=== PATIENT | female | born 2000 | race Caucasian/White ===

== ENCOUNTER 2020-12-28 19:24 | Emergency (ER) | payer OTHER, SELFPAY ==
[2020-12-28 20:08] VITALS: BP 93/54; PULSE 80; RESP 16; TEMP 37.2; O2SAT 99; BMI 23.3
--- NOTE | 2020-12-28 20:10 | ED.SKABFB ---
HPI - Skin/Abscess/Foreign Bdy General Chief complaint: Skin/Abscess/Foreign Body Stated complaint: possible infected cyst Time Seen by Provider: 12/28/20 20:09 Source: patient Mode of arrival: ambulatory Limitations: no limitations History of Present Illness HPI narrative: patient is a 20-year-old female no significant past medical history presents with a cyst on her low back, upper buttocks. She states it is extremely painful and has been there for 4 days. She states she has not taken any medication to try to make it better used warm moist cloths. She states this is never happened before. She denies fevers or rash. Related Data Allergies Allergy/AdvReac Type Severity Reaction Status Date / Time No Known Allergies Allergy Unverified 03/15/20 17:03 [No Known Allergies*] Review of Systems Review of Systems: Yes all other systems are reviewed and are negative PMFSH Past Medical History Medical History No known health problems Social History Social History Advance Directives: No Advance Directives Information Provided: Yes Patient : No Physical Exam Vital Signs: Vital Signs: Last Vital Signs Temp 99.0 F 12/28/20 20:08 Pulse 80 12/28/20 20:08 Resp 16 12/28/20 20:08 BP 93/54 L 12/28/20 20:08 Pulse Ox 99 12/28/20 20:08 Body Mass Index 23.3 Const: General: cooperative, healthy appearing, comfortable and no acute distress Nutritional Appearance: average body habitus Orientation/consciousness: patient oriented x3 HENMT: Head: Yes normal to inspection Eyes: General: appearance normal, both eyes and all related structures Skin: Other: Upper buttocks, 4 cm x 2 cm fluctuant erythematous abscess. No signs of infection noted Neuro: General: patient oriented x3 Course Course Course Narrative: abscess on the upper buttocks, will do I and D. Patient in significant amount of pain status post I&D, will give 5 mg Oxy for pain control. Patient has her boyfriend driving her home tonight. Procedures Abscess I/D Site: other (upper buttock) Side (if applicable): right Local Anesthetic: lidocaine 2% Amount of anesthesia used (mL): 5 Technique: incised with blade Amount of fluid expressed (mL): 10 Sent for culture/gram staining?: No Irrigation: Yes Packing used?: iodoform Complications: pain
[2020-12-28] MEDS: Lidocaine HCl 2 % MPF 5 ML VIAL INFILTRATI (21:26)
[2020-12-28] MEDS: oxyCODONE HCl Immed Release 5 MG TABLET PO (21:44)
== END 2020-12-28 21:52 | disposition home or self-care (01) ==
PROVIDERS: Emergency Provider Internal Medicine
DX: L02.31 Cutaneous abscess of buttock (principal)
CPT/HCPCS: 10060; 99283; 99284

== ENCOUNTER 2021-07-07 12:01 | Emergency (ER) | payer MEDICAID, SELFPAY ==
[2021-07-07 12:33] VITALS: BP 107/64; PULSE 110; RESP 18; TEMP 36.9; O2SAT 99; BMI 24.0
[2021-07-07 12:59] LABS: COVID-19 Test Positive (Negative); IDNOW Serial# 9DD0AD1C
--- NOTE | 2021-07-07 14:10 | PC.NURSE ---
heart tones heard with doppler at 145
--- NOTE | 2021-07-07 14:21 | ED.SOB ---
HPI - SOB/Dyspnea General Chief Complaint: Dyspnea Stated Complaint: Body aches/headache/nausea Time Seen by Provider: 07/07/21 13:02 Source: patient Mode of arrival: ambulatory Limitations: no limitations History of Present Illness HPI Narrative: With 28 weeks not vaccinated against COVID been feeling body aches malaise slight shortness of breath since morning today slight cough saturating 99% at room air afebrile on arrival no vaginal bleeding or discharge no abdominal pain fetus is moving normally Related Data Previous Rx's Medication Instructions Recorded dexamethasone 6 mg tablet 6 mg PO DAILY #7 tab 07/07/21 (Decadron) Allergies Allergy/AdvReac Type Severity Reaction Status Date / Time No Known Allergies Allergy Unverified 03/15/20 17:03 [No Known Allergies*] Review of Systems Review of Systems: Yes all other systems are reviewed and are negative [facility] Past Medical History Medical History No known health problems Social History Social History Advance Directives: No Advance Directives Information Provided: Yes Patient : Yes Physical Exam Vital Signs: Vital Signs: Last Vital Signs Temp 98.9 F 07/07/21 14:49 Pulse 80 07/07/21 14:49 Resp 18 07/07/21 14:49 BP 107/64 07/07/21 12:33 Pulse Ox 99 07/07/21 14:49 BMI result Body Mass Index 24.0 Appearance: Alert. Oriented X3. No acute distress. ENT: Pharynx normal. Oral Mucosa moist Neck: Normal inspection. Neck supple. CVS: Normal heart rate and rhythm. Pulses normal. Respiratory: No respiratory distress. Equal air entry bilateral, no wheezing/rales/rhonchi Abdomen: Gravid uterus no tenderness Bowel sounds are present, Skin: Skin warm and dry. Normal skin color. Normal skin turgor. Extremities: No lower extremity edema. No calf tenderness Neuro: Oriented X 3. MDM - SOB/Dyspnea Lab Data Attestation: I reviewed the patient's lab results. Labs: Lab Results 07/07/21 Range/Units 12:40 COVID-19 ([facility]) Positive A (Negative) COVID-19 Clin Com See Note Discharge Plan Discharge Clinical Impression: COVID-19 Patient Disposition: Home, Self-Care Instructions: COVID-19 (Coronavirus Disease 2019) (ED) Additional Instructions: Rest at home Drink plenty of fluid Decadron as advised report to ed if increase shortness of breath or not feel good tylenol for fever Prescriptions: New dexamethasone [Decadron] 6 mg tablet 6 mg PO DAILY Qty: 7 RF: 0 Interventions: ED Discharge Assessment Last Done: 07/07/21 14:49 Discharge Date/Time: 07/07/21 14:52
[2021-07-07] MEDS: Acetaminophen 325 MG TABLET 650 MG PO (14:37)
[2021-07-07] MEDS: dexAMETHasone 6 MG TABLET PO (14:37)
[2021-07-07 14:49] VITALS: PULSE 80; RESP 18; TEMP 37.2; O2SAT 99
== END 2021-07-07 14:52 | disposition home or self-care (01) ==
PROVIDERS: Emergency Provider Internal Medicine
DX: U07.1 COVID-19 (principal); R06.02 Shortness of breath; M79.10 Myalgia, unspecified site; Z79.899 Other long term (current) drug therapy
CPT/HCPCS: 87635; 99283; 99284; J8540

== ENCOUNTER 2024-11-09 20:38 | Emergency (ER) | payer MEDICAID, SELFPAY ==
--- NOTE | 2024-11-09 20:40 | ED.UPPEXIN ---
HPI - Extremity Injury (Upper) General Chief Complaint: Wound/Laceration Stated Complaint: left hand pointer finger wound Time Seen by Provider: 11/09/24 21:31 History of Present Illness HPI narrative: 24-year-old female presents with left 2nd finger laceration. Patient states she caught herself on a knife at home while opening her child's toy. Tetanus up-to-date Related Data Previous Rx's ?Medication ?Instructions ?Recorded dexamethasone 6 mg tablet 6 mg PO DAILY #7 tabs 07/07/21 (Decadron) Allergies Allergy/AdvReac Type Severity Reaction Status Date / Time No Known Allergies Allergy Verified 11/09/24 20:46 [No Known Allergies*] Review of Systems Review of Systems: Yes all other systems are reviewed and are negative Constitutional: Constitutional: Denies fever(s) Musculoskeletal: Musculoskeletal: Denies arthralgias and Denies joint swelling Integumentary/Breasts: Skin/Breast: Reports wounds PMFSH Past Medical History Attestation statement: The following information was validated with the patient. Medical History No known health problems Social History Social History Smoked in Last 30 Days: No Use of substances other than those prescribed or required for medical reasons: No Advance Directives: No Advance Directives Information Provided: Yes Patient : No Physical Exam Vital Signs: Vital Signs: Last Vital Signs Temp 97.7 F 11/09/24 22:46 Pulse 80 11/09/24 22:46 Resp 16 11/09/24 22:46 BP 110/61 11/09/24 22:46 Pulse Ox 98 11/09/24 22:46 O2 Del Method Room Air 11/09/24 22:46 BMI result Body Mass Index 26.2 Const: Other: Alert well-appearing Orientation/consciousness: patient oriented x3 Resp: Effort & Inspection: normal respiratory effort Cardio: Other: Normal peripheral perfusion Skin: Other: Warm dry no rash Neuro: General: patient oriented x3, gait normal, no focal motor deficits and CN's II-XI intact bilaterally Extrem: Other: 1.5 cm linear superficial laceration noted over left pointer finger along the palmar aspect of the pad, no longer bleeding Psych: Other: Cooperative Course Course Course Narrative: This is a rapid medical exam performed by Nuno Conner NP: Additional HPI, ROS, PE not included below will be deferred to primary provider. 24 yo female with no significant PMHx, right hand dominant presents to ED due to L 2nd digit. She states she was opening a toy for her toddler with a knife when it slipped and cut the L 2nd digit. She states her last tetanus shot was 2 years ago. PE: 1cm laceration of the L 2nd digit, proximal MCP. No active bleeding in triage. Full ROM, no tingling or numbness Plan: lac repair Medical Decision Making Medical Decision Making MDM Narrative: 24-year-old female presents with left 2nd finger laceration. Patient states she caught herself on a knife at home while opening her child's toy. Tetanus up-to-date No chronic issues History: Per patient I have considered the following differential diagnoses: Laceration, excoriation, contusion, abrasion Plan: Lack of require simple repair no indication for labs or imaging Procedures Laceration Laceration 1: Site: hand Side (If applicable): left Size (cm): 1.5 Description: linear Depth: simple, single layer Local Anesthetic: lidocaine 1% and with epi Amount of anesthesia used (mL): 2 Pre-repair: irrigated extensively Skin layer closed with: nylon Size (cm): 5-0 Number of sutures: 4 Technique: simple, interrupted Discharge Plan Discharge Clinical Impression: Laceration of finger of left hand Patient Disposition: Home, Self-Care Instructions: Laceration (ED) Additional Instructions: For stitches were used to repair the laceration. The stitches can be removed in 7 days. Watch for signs of infection which would include redness, swelling, pus draining from the site or fever. Prescriptions: No Action dexamethasone [Decadron] 6 mg tablet 6 mg PO DAILY Qty: 7 0RF Interventions: ED Discharge Assessment Last Done: 11/09/24 22:46 Discharge Date/Time: 11/09/24 22:46 Print Language: Panamanian
[2024-11-09 20:41] VITALS: BP 118/83; PULSE 79; RESP 16; TEMP 36.7; O2SAT 100; BMI 26.2
[2024-11-09 22:43] VITALS: BP 110/61; PULSE 80; RESP 16; TEMP 36.5; O2SAT 98
[2024-11-09 22:46] VITALS: BP 110/61; PULSE 80; RESP 16; TEMP 36.5; O2SAT 98
== END 2024-11-09 22:46 | disposition home or self-care (01) ==
PROVIDERS: Emergency Provider Emergency Medicine; PCP Dentist General Practice
DX: S61.211A Laceration without foreign body of left index finger without damage to nail, initial encounter (principal); M79.645 Pain in left finger(s); W26.0XXA Contact with knife, initial encounter; Y93.9 Activity, unspecified; Y92.9 Unspecified place or not applicable; Y99.8 Other external cause status
CPT/HCPCS: 12001; 99284